=== PATIENT | female | born 1945 | race Hispanic/Latino ===

== ENCOUNTER → 2018-10-22 | Outpatient (CLI) | payer OTHER | END | disposition home or self-care (01) | LOC: RAH 12:49 | PROVIDERS: ATTEND Family Medicine | DX: I70.211 Atherosclerosis of native arteries of extremities with intermittent claudication, right leg (principal) | CPT/HCPCS: 93926 ==

== ENCOUNTER → 2018-10-29 | Outpatient (CLI) | payer OTHER | END | disposition home or self-care (01) | LOC: OIH 15:02 | PROVIDERS: ATTEND Family Medicine | DX: M13.862 Other specified arthritis, left knee (principal); M11.262 Other chondrocalcinosis, left knee | CPT/HCPCS: 73560 ==

== ENCOUNTER → 2019-11-01 | Outpatient (CLI) | payer OTHER | END | disposition home or self-care (01) | LOC: OIH 09:54 | PROVIDERS: ATTEND Family Medicine | DX: Z01.818 Encounter for other preprocedural examination (principal); I70.0 Atherosclerosis of aorta; M40.294 Other kyphosis, thoracic region ==

== ENCOUNTER → 2020-05-31 | Outpatient (CLI) | payer OTHER ==
[~2020-05-31] MED LIST: IOHEXOL-350 50ML VIAL IV ONE
== END | disposition home or self-care (01) ==
LOC: RAH 12:26
PROVIDERS: ATTEND Family Medicine
DX: I65.23 Occlusion and stenosis of bilateral carotid arteries (principal); R91.1 Solitary pulmonary nodule; R55 Syncope and collapse; R51.9 Headache, unspecified; R00.1 Bradycardia, unspecified
CPT/HCPCS: 70450; 71270; 93880; Q9967

== ENCOUNTER → 2020-11-08 | Outpatient (CLI) | payer OTHER | END | disposition home or self-care (01) | LOC: RAH 14:18 | PROVIDERS: ATTEND Family Medicine | DX: I70.211 Atherosclerosis of native arteries of extremities with intermittent claudication, right leg (principal) | CPT/HCPCS: 93925 ==